=== PATIENT | female | born 1985 | race Caucasian/White ===

== ENCOUNTER 2020-03-25 10:24 | Outpatient (CLI) | payer OTHER ==
[2020-03-26 14:48] LABS: SARS-CoV-2 MS2 Positive; SARS-CoV-2 N Gene Negative; SARS-CoV-2 S Gene Negative; SARS-CoV-2 by NAA Not Detected (NotDetected); SARS-CoV-2 orf1ab Negative
== END 2020-03-25 10:25 | disposition home or self-care (01) ==
LOC: LABSCS 10:24
PROVIDERS: ATTEND Obstetrics & Gynecology
DX: Z20.828 Contact with and (suspected) exposure to other viral communicable diseases (principal)
CPT/HCPCS: 87635; U0003

== ENCOUNTER 2020-03-29 01:56 | Inpatient (IN) | payer OTHER ==
[2020-03-29] MEDS ORDERED: NS / Oxytocin 40 units/1000ml 1,000 ML ONE (02:10)
[2020-03-29] MEDS ORDERED: Oxytocin 10 UNITS/ML VIAL ONE (02:10)
[2020-03-29] MEDS: NS / Oxytocin 40 units/1000ml 1,000 ML IV PRN ×2 (02:12→02:56)
[2020-03-29] MEDS ORDERED: hydrALAZINE 20 MG/ML VIAL SLOW IVP PRN ×2 (03:25→05:33)
[2020-03-29] MEDS ORDERED: Ondansetron PF 4 MG/2 ML Vial IVP PRN ×2 (03:25→05:33)
[2020-03-29] MEDS ORDERED: Lidocaine 1% (PF) 30 ML VIAL SC PRN (03:25)
[2020-03-29 03:53] VITALS: BMI 28.8
[2020-03-29 04:22] LABS: Hemoglobin 11.8 g/dL (12.0-16.0); Mean Corpuscular HGB CONC 33.3 g/dL (32.0-36.0); Mean Corpuscular Hemoglobin 30.2 pg (27.0-31.0); Mean Corpuscular Volume 90.8 fL (78.0-98.0); Mean Platelet Volume 10.5 fL (7.4-10.4); Platelet Count 201 thou/uL (130-400); RBC Distribution Width 11.8 % (11.5-14.5); Red Blood Cell (RBC) Count 3.89 mill/uL (4.20-5.40); White Blood Cell (WBC) Count 10.9 thou/uL (4.8-10.8)
[2020-03-29] MEDS: HYDROcodone/Acetaminophen 5/325 mg Tablet PO PRN ×4 (04:28→21:50)
[2020-03-29 05:00] LABS: Syphilis Antibody Nonreactive (Nonreactive); Syphilis Antibody Index 0.05 S/CO (<1.00 Non-Reactive)
[2020-03-29] MEDS ORDERED: Acetaminophen 325 MG TAB PO SCH (05:00)
[2020-03-29 05:01] LABS: Hep B Surf Ag Non-Reactive S/CO (NonReactive)
[2020-03-29] MEDS ORDERED: Lanolin Ointment 7 GM TUBE TOP PRN (05:33)
[2020-03-29] MEDS ORDERED: Milk Of Magnesia 30 ML UDCUP PO PRN (05:33)
[2020-03-29] MEDS ORDERED: NS / Oxytocin 40 units/1000ml 1,000 ML IV SCH (05:33)
[2020-03-29] MEDS ORDERED: HYDROcodone/Acetaminophen 5/325 mg Tablet PO PRN (05:33)
[2020-03-29] MEDS ORDERED: Bisacodyl 10 MG SUPP PR PRN (05:33)
[2020-03-29] MEDS: Ferrous Sulfate 325 MG TAB PO SCH ×2 (08:26→16:25)
[2020-03-29] MEDS: Docusate Calcium (SURFAK) 240 MG CAP PO SCH ×2 (08:27→21:50)
[2020-03-29] MEDS: Prenatal Vitamin 1 TAB PO SCH (08:27)
[2020-03-29] MEDS ORDERED: Adacel (T-DAP) 0.5 ML SYRINGE IM ONE (09:00)
--- NOTE | 2020-03-29 13:27 | DN ---
DATE OF PROCEDURE: 03/29/2020 The patient is a 34-year-old, G4, now P4, female, who presented to Labor and Delivery after delivering a term fetus in the car en route to the hospital. From the emergency room to Labor and Delivery, the placenta spontaneously delivered. Evaluation of the perineum and vaginal canal showed no lacerations. 100 mL of blood clot was evacuated with bimanual exam that was in the opening of the cervix. IV was placed and Pitocin was then started. Dr. Rosas was the attending physician by the time she arrived to Labor and Delivery. The was a female delivered at 0127 hours at 40 weeks' gestation in 1 day. weight was 3540 g. Apgars at one, five, and ten minutes of life were unknown; however, the baby was vigorous on arrival to Labor and Delivery. Job ID: [id number]
[2020-03-30] MEDS: HYDROcodone/Acetaminophen 5/325 mg Tablet PO PRN ×3 (05:50→18:29)
[2020-03-30 06:01] LABS: #Basophils 0.1 thou/uL (0.0-0.2); #Eosinphils 0.1 thou/uL (0.0-0.7); #Lymphocytes 2.7 thou/uL (1.20-3.40); #Monocytes 0.6 thou/uL (0.11-0.59); #Neutrophils 6.4 thou/uL (1.40-6.50); %Basophils 0.9 % (0.0-1.0); %Eosinophils 1.5 % (0.0-10.0); %Lymphocytes 27.3 % (21.0-51.0); %Monocytes 5.6 % (0.0-10.0); %Neutrophils 64.7 % (42.0-75.0); Hemoglobin 10.1 g/dL (12.0-16.0); Mean Corpuscular HGB CONC 32.4 g/dL (32.0-36.0); Mean Corpuscular Hemoglobin 29.7 pg (27.0-31.0); Mean Corpuscular Volume 91.6 fL (78.0-98.0); Mean Platelet Volume 9.2 fL (7.4-10.4); Platelet Count 185 thou/uL (130-400); RBC Distribution Width 11.9 % (11.5-14.5); Red Blood Cell (RBC) Count 3.39 mill/uL (4.20-5.40); White Blood Cell (WBC) Count 9.9 thou/uL (4.8-10.8)
--- NOTE | 2020-03-30 06:11 | PDOC.PP ---
Post Progress Note Post Day #: 1 Subjective: Doing well, no issues this AM; baby in room PO intake tolerated: yes Flatus: yes Ambulation: yes Vital Signs (12 hours) Temp Pulse Resp BP 03/30/20 00:15 97.7 F 69 15 107/57 L 03/29/20 20:45 97.8 F 67 14 101/67 Weight Weight 201 lb - Physical Examination General: NAD Cardiovascular: no m/r/g Respiratory: clear to auscultation bilaterally, non-labored breathing Abdominal: no distention, appropriately TTP Extremities: negative homans (B) Neurological: no gross focal deficits Psychiatric: A&Ox3, normal affect Result Diagrams: 03/30/20 05:37 Additional Labs: Post Labs Hep Bs Antigen Non-Reactive S/CO (NonReactive) 03/29/20 04:11 Blood Type A POSITIVE 03/29/20 05:00 (1) Vaginal delivery Code(s): O80 - ENCOUNTER FOR FULL-TERM UNCOMPLICATED DELIVERY Status: Acute - Assessment/Plan Patient had delivery in car with placental delivery (per the account) enroute to L&D. Mom is GBS pos and did not recieve intrapartum ABX coverage. Therefore, as baby likely to need 48 hrs OBS due to GBS, we will keep mom until tomorrow AM, 03/31. Routine PP for now
[2020-03-30] MEDS: Ferrous Sulfate 325 MG TAB PO SCH ×2 (07:49→15:45)
[2020-03-30] MEDS: Docusate Calcium (SURFAK) 240 MG CAP PO SCH ×2 (09:38→20:22)
[2020-03-30] MEDS: Prenatal Vitamin 1 TAB PO SCH (09:38)
[2020-03-31] MEDS: Docusate Calcium (SURFAK) 240 MG CAP PO SCH (09:08)
[2020-03-31] MEDS: Ferrous Sulfate 325 MG TAB PO SCH (09:08)
[2020-03-31] MEDS: Prenatal Vitamin 1 TAB PO SCH (09:08)
[2020-03-31 11:14] VITALS: BP 114/74; TEMP 97.8
[2020-03-31] MEDS ORDERED: Measles/Mumps/Rubella 10 MCG/0.5 ML VIAL SC ONE (12:00)
== END 2020-03-31 10:50 | disposition home or self-care (01) | DRG 807 ==
LOC: L&D/OP 01:56 → L&D 02:18 → 3SW 06:14
PROVIDERS: ADMIT Obstetrics & Gynecology; ATTEND Obstetrics & Gynecology
PROC: 10E0XZZ Delivery of Products of Conception, External Approach (ICD-10-PCS; principal; 2020-03-29)
DX: O48.0 Post-term pregnancy (principal); Z37.0 Single live birth; Z3A.40 40 weeks gestation of pregnancy; O99.824 Streptococcus B carrier state complicating childbirth
CPT/HCPCS: 36415; 85025; 86780; 86850; 86900; 86901; 87340; 90707; 99285; J2590